=== PATIENT | male | born 1935 | race Caucasian/White ===

== ENCOUNTER → 2016-10-14 | Outpatient (CLI) | payer MEDICARE, OTHER ==
[~2016-10-14] MED LIST: AMBIEN10 MG PO; ASPIRIN E.C. 8181 MG PO; CYMBALTA30 MG PO; ENALAPRIL10 MG PO; FLOMAX 0.40.4 MG/CAP PO; ISOSORBIDE30 MG PO; MULTIPLE VITAMI1 CAP PO; NABUMETONE500 MG PO; NEURONTIN300 MG PO; NIACIN250 M2 PO; OYSCO 500500 M1 PO; TOPROL XL100 MG PO; TYLENOL 325MG325 MG PO; ZOCOR 20MG20 MG PO
== END ==
LOC: MHCPAIN 11:40
DX: G89.29 Other chronic pain (principal); M47.27 Other spondylosis with radiculopathy, lumbosacral region; M53.3 Sacrococcygeal disorders, not elsewhere classified
CPT/HCPCS: G0463

== ENCOUNTER → 2016-10-22 | Outpatient (CLI) | payer MEDICARE, OTHER | LOC: MHCPAIN 11:59 | DX: M53.3 Sacrococcygeal disorders, not elsewhere classified (principal) | CPT/HCPCS: G0260; J1040; Q9967 ==

== ENCOUNTER → 2016-11-03 | Outpatient (CLI) | payer MEDICARE, OTHER | LOC: MHCPAIN 11:52 | DX: G89.29 Other chronic pain (principal); M47.817 Spondylosis without myelopathy or radiculopathy, lumbosacral region; M54.16 Radiculopathy, lumbar region; M48.06 Spinal stenosis, lumbar region | CPT/HCPCS: G0463 ==

== ENCOUNTER → 2016-12-28 | Outpatient (CLI) | payer MEDICARE, OTHER | LOC: MHCPAIN 12:12 | DX: G89.29 Other chronic pain (principal); M47.817 Spondylosis without myelopathy or radiculopathy, lumbosacral region; M54.16 Radiculopathy, lumbar region; M53.3 Sacrococcygeal disorders, not elsewhere classified | CPT/HCPCS: G0463 ==

== ENCOUNTER 2023-11-10 21:36 | Inpatient (IN) | payer MEDICARE, OTHER ==
[2023-11-10] VITALS (9 sets, daily range): BP systolic 153; BP diastolic 93; PULSE 104; O2SAT 86–98
[~2023-11-10] VITALS: Wt 76.2 kg
[2023-11-10] MEDS ORDERED: OLANZapine 10 MG,Water For Injection,Sterile 2 ML IM ONE (23:00)
[2023-11-10] MEDS ORDERED: Ondansetron 4 MG/2 ML VIAL IV PRN (23:15)
--- NOTE | 2023-11-10 23:26 | NUR ---
Patient arrived to the floor at 2218 from [facility] via EMS per stretcher, very agitated and wanting to get up and wanted to void, with ba cather F16 inserted at [facility] draining bright red urine, noted red blood around the penile area, informed Mike, the PA regarding his arrival at 2227, called admission at 2231, received an order from Mike for Zyprexa IM given at 2306, patient was transferred to the unit at 2312 still agitated and combative escorted by 3 staff with 2 security personnel, report given to Amparo DOBSON at 2314.
[2023-11-10] MEDS ORDERED: LR 1,000 ML IV SCH (23:30)
[2023-11-10] MEDS ORDERED: cefTRIAXone 1 G in Water For Injection,Sterile 10 ML IV ONE (23:30)
[2023-11-10] MEDS ORDERED: Morphine 4 MG/ML VIAL IV PRN (23:30)
[2023-11-10] MEDS ORDERED: hydrALAZINE 20 MG/ML 1 ML VIAL IV PRN (23:30)
[2023-11-10] MEDS ORDERED: Acetaminophen 325 MG TAB PO PRN (23:30)
[2023-11-11] VITALS (242 sets, daily range): BP systolic 129–160; BP diastolic 75–113; PULSE 89–112; TEMP 97.9–98.5; O2SAT 74–100
[2023-11-11 00:38] LABS: BASO % 0.4 % (0.0-2.0); EOS # 0.1 K/mm3 (0.0-0.7); EOS % 0.6 % (0.0-4.0); GRAN # 6.8 K/mm3 (1.4-6.5); HEMATOCRIT 23.9 % (42.0-52.0); HEMOGLOBIN 7.8 g/dl (13.5-18.0); LYMPH # 0.3 K/mm3 (1.2-3.4); LYMPH % 3.7 % (20.0-51.0); MEAN CELL VOLUME 86 fl (80.0-100.0); MEAN CORPUSCULAR HEMOGLOBIN 28 pg (27-31); MEAN CORPUSCULAR HGB CONC 33 g/dl (33.0-37.0); MEAN PLATELET VOLUME 8.8 fl (7.4-10.4); MONO # 0.7 K/mm3 (0.1-0.6); MONO % 8.9 % (1.7-9.3); PLATELET COUNT 173 K/mm3 (130-400); RED BLOOD COUNT 2.79 M/mm3 (4.20-5.60); REDCELL DISTRIBUTION WIDTH-CV 14.3 % (11.5-14.5)
[2023-11-11 00:55] LABS: ALBUMIN 2.4 g/dL (3.4-4.8); BILIRUBIN,TOTAL 0.5 mg/dL (0.2-1.2); CALCIUM 8.8 mg/dL (8.4-10.2); CREATININE, serum 2.16 mg/dL (0.72-1.25); POTASSIUM 3.9 mEq/L (3.5-4.5); TOTAL PROTEIN 5.4 g/dl (6.2-8.1)
--- NOTE | 2023-11-11 01:21 | NUR ---
REPORT RECEIVED FROM JAMIE DOBSON AT 2315. PATIENT ARRIVED TO UNIT AROUND 2315 BY BED, BILATERAL WRIST RESTRAINTS ON DUE TO AGITATION, SECURITY GAURDS WITH PATIENT DURING TRANSPORT. ALL BELONGINGS TRANSFERRED WITH PATIENT.
[2023-11-11] MEDS ORDERED: OLANZapine 5 MG,Water For Injection,Sterile 1 ML IM PRN (02:30)
--- NOTE | 2023-11-11 03:10 | NUR ---
MISTAKE, PUT THIS INTERVENTION INSTEAD OF NONVIOLENT.
--- NOTE | 2023-11-11 03:11 | NUR ---
MISTAKE, MEANT TO ADD NONVIOLENT PROCESS INTERVENTION.
[2023-11-11] MEDS ORDERED: NS Irrig Soln 3000 ML SOLN IRP PRN (05:00)
[2023-11-11 05:21] LABS: CALCIUM 9.1 mg/dL (8.4-10.2); CREATININE, serum 2.02 mg/dL (0.72-1.25); POTASSIUM 3.9 mEq/L (3.5-4.5)
[2023-11-11] MEDS ORDERED: Isosorbide Mononitrate CR (24-HR) 30 MG TAB PO SCH (07:00)
--- NOTE | 2023-11-11 08:44 | NUR ---
PT IS AWAKE IN BED. NOT ORIENTED TO TIME, PLACE, OR SITUATION. FREQUENTLY YELLS OUT IN RANDOM. CBI INFUSING, URINE PINK IN COLOR WITH FEW CLOTS. 2 POINT SOFT WRIST RESTRAINTS ON, CIRCULATION AND FEELING IN TACT. BED ALARM IS ON. PT CONSTANTLY TAKES 02 FINGER PROBE OFF. CALL LIGHT IN REACH. NO NEW ORDERS. PLAN OF CARE ONGOING.
[2023-11-11] MEDS ORDERED: Sennosides/Docusate 8.6-50 MG TAB PO SCH (09:00)
[2023-11-11] MEDS ORDERED: Pantoprazole 40 MG in NS 10 ML IV SCH (09:00)
[2023-11-11] MEDS ORDERED: DULoxetine 30 MG CAP PO SCH (09:00)
--- NOTE | 2023-11-11 09:19 | NUR ---
lime kiln worker helper notes according to notes patient is agitated and confused. EVELYN contacted PCP listed, Dr. Zavala's office. PCP provided Charissa as a point of contact, P# [phone]. EVELYN was notified patient lives in the [place] prison. EVELYN contacted Brittney at the [facility] whom reports Charissa is the DPOA-HC and they are going to secure email the forms to the social psychologist. Brittney explained patient is in the jail care unit at their prison. Patient has a wheelchair and walker but the walker is for transfers as he is unable to walk. Patient receives assistance from staff with all ADLS. PCP is Dr. Jean and pharmacy is [facility] in [place]. Brittney reports they transport him to all appointments. EVELYN received Living will, DPOA-HC and General DPOA all listing Charissa Chappell as point of contact and agent for his care. EVELYN placed this on patient's chart. EVELYN contacted Charissa, P# [phone], to notify her patient is in the hospital. Charissa was unaware of his admission and would be up to visit patient later today. Charissa reports his insurance is Medicare A and B and [facility] Health Plan and patient's medications are typically covered by his insurance. Charissa asked for plan for patient. EVELYN explained patient is currently in the ICU due to being combative, once more stable he would move to our medical floor then when medically stable for discharge he would return to the [facility]. Charissa understands and explained she would be at the hospital later today to visit patient. EVELYN provided patient's nurse with Charissa's contact. EVELYN also contacted admissions and requested the information be added to patient's EMR to ensure all staff are able to contact her in an emergency. Discharge plan: Return to [facility]
[2023-11-11] MEDS ORDERED: SEROQUEL50 MG PO (09:39)
[2023-11-11] MEDS ORDERED: LASIX 40MG TABL40 MG PO (09:40)
[2023-11-11] MEDS ORDERED: LASIX 20MG TABL20 MG PO (09:40)
[2023-11-11] MEDS ORDERED: FENTANYL 25 MCG TD (09:40)
[2023-11-11] MEDS ORDERED: KLOR-CON SPRIN10 MEQ PO (09:41)
[2023-11-11] MEDS ORDERED: ROXICODONE 55 MG/TAB PO (09:41)
[2023-11-11] MEDS ORDERED: VALIUM 2MG T2 MG/TAB PO (09:41)
[2023-11-11] MEDS ORDERED: CYMBALTA 60MG60 MG PO (09:42)
[2023-11-11] MEDS ORDERED: CELEBREX 200MG200 MG PO (09:42)
[2023-11-11] MEDS ORDERED: PEPCID AC 10MG10 MG PO (09:42)
[2023-11-11] MEDS ORDERED: MELATONIN5 M1 SL (09:43)
[2023-11-11] MEDS ORDERED: FLOMAX 0.40.4 MG/CAP PO (09:43)
[2023-11-11] MEDS ORDERED: IMDUR 30MG30 MG/TAB PO (09:43)
[2023-11-11] MEDS ORDERED: RANEXA 500MG T500 MG PO (09:44)
[2023-11-11] MEDS ORDERED: PROTONIX20 MG PO (09:44)
[2023-11-11] MEDS ORDERED: ASPIRIN E.C. 8181 MG PO (09:45)
[2023-11-11] MEDS ORDERED: SEROQUEL 2525 MG/TAB PO (09:45)
[2023-11-11] MEDS ORDERED: TOPROL XL 50MG50 MG PO (09:46)
[2023-11-11] MEDS ORDERED: MIRALAX119G PO (09:46)
[2023-11-11] MEDS ORDERED: ZOCOR 20MG20 MG PO (09:46)
--- NOTE | 2023-11-11 10:32 | NUR ---
EDUCATED ERICK STRAUSS ON PT CONDITION. SHE EXPRESSED UNDERSTANDING. ALSO EDUCATED HER ON WHAT IT MEANS TO BE A FULL CODE STATUS VS. DNR. CARLOS A EXPRESSED HER WISHED FOR DNR STATUS.
--- NOTE | 2023-11-11 10:49 | NUR ---
Initial visit; Patient in restraints, having dementia. Ssn/Ssbn Weapons Equipment Operator talked with him letting him know who she was and would like to pray with him. Jay was happy for prayer. Ssn/Ssbn Weapons Equipment Operator had to explain again how he needed to rest. She prayed and covered him up so he can sleep well.
--- NOTE | 2023-11-11 13:03 | NUR ---
Patient's nurse asked about DNR documentation. SW contacted patient's longterm and they expressed they do not have a DNR form for this patient. SW notified patient's nurse.
--- NOTE | 2023-11-11 14:24 | NUR ---
PT TRANSFERED TO SURG RM 345 VIA BED ACCOMPANIED BY THIS NURSE AND SURG NURSE SHRUTI. CBI INFUSING. ALL BELONGINGS TRANSFERED WITH PT. INFORMED DPOA CARLOS A OF THIS TRANSFER. ALL VITALS STABLE. PT STILL CONFUSED CONVERSATION - WRIST RESTRAINTS STILL IN PLACE DUE TO PT PULLING AT CBI CATHETER. PLAN OF CARE HANDED OFF AT THIS TIME.
--- NOTE | 2023-11-11 14:45 | NUR ---
PT UP TO FLOOR AT THIS TIME. RESTRAINS IN PLACE PT TRANSFERED TO BED, PT STATING PAIN 10/10 BUT INTERMITTENTLY RESTING WITH EYES CLOSED. PT A/O TO SELF ONLY. AQUACELL APPLIED TO LEFT FOREARM SKIN TEAR. CBI RUNNING SLOWLY AND URINE LIGHT PINK WITH CLOTS. WILL CONTINUE TO MONITOR.
--- NOTE | 2023-11-11 15:00 | NUR ---
WRIST RESTRAINTS REMOVED AT THIS TIME. PT EDUCATED ON NEED OF CATHETER AND SAFETY MEASURES. BED ALARM IN PLACE. PT ASSISTED WITH EATING DINNER, TOLERATING DEIT WELL. PT CALM AND RESTING IN BED WITH OCCASIONAL CONFUSION AND NEED FOR REORIENTATION. OVERALL PT PLEASANT AND RESTING COMFORTABLY. WILL CONTINUE TO MONITOR.
--- NOTE | 2023-11-11 15:07 | NUR ---
computer networker secure emailed clinical updates to [facility].
[2023-11-11] MEDS ORDERED: Simvastatin 40 MG **** subs to Atorvastatin 20 MG PO SCH (21:00)
[2023-11-11] MEDS ORDERED: Atorvastatin 20 MG TAB PO SCH (21:00)
[2023-11-12] VITALS (11 sets, daily range): BP systolic 105–178; BP diastolic 61–90; PULSE 88–95; TEMP 97.7–99.1
[2023-11-12 06:42] LABS: BASO # 0.1 K/mm3 (0.0-0.2); BASO % 0.7 % (0.0-2.0); EOS # 0.4 K/mm3 (0.0-0.7); EOS % 5.2 % (0.0-4.0); GRAN % 67.7 % (42.2-75.2); LYMPH # 0.9 K/mm3 (1.2-3.4); LYMPH % 12.5 % (20.0-51.0); MEAN CELL VOLUME 87 fl (80.0-100.0); MEAN CORPUSCULAR HGB CONC 32 g/dl (33.0-37.0); MEAN PLATELET VOLUME 9.2 fl (7.4-10.4); MONO % 13.5 % (1.7-9.3); PLATELET COUNT 205 K/mm3 (130-400); RED BLOOD COUNT 2.78 M/mm3 (4.20-5.60); REDCELL DISTRIBUTION WIDTH-CV 14.5 % (11.5-14.5)
[2023-11-12 06:48] LABS: HEMOGLOBIN 7.8 g/dl (13.5-18.0); MEAN CORPUSCULAR HEMOGLOBIN 28 pg (27-31)
[2023-11-12 06:49] LABS: HEMATOCRIT 24.1 % (42.0-52.0)
[2023-11-12 07:01] LABS: CALCIUM 8.6 mg/dL (8.4-10.2); CREATININE, serum 1.39 mg/dL (0.72-1.25); POTASSIUM 3.1 mEq/L (3.5-4.5)
--- NOTE | 2023-11-12 08:47 | NUR ---
PT RESTING IN BED WITH NO SIGNS OF PAIN, TOELRATING DEIT, WELL, A/O TO SELF ONLY. CBI RUNNING VERY SLOWLY AND URINE YELLOW AND CLEAR. MEPOLEX IN PLACE ON LEFT FOREARM SKIN TEAR CLEAN AND DRY. ESTEVES TO DEPENDENT DRAINAGE. PT PLEASANT AND COOPERATIVE AT THIS TIME. WILL CONTINUE TO MONITOR.
[2023-11-12] MEDS ORDERED: *Potassium Replacement Protocol MC SCH (09:30)
[2023-11-12] MEDS ORDERED: Potassium Bicarbonate/Citrate 20 MEQ Effervescent TAB PO SCH (09:30)
[2023-11-12] MEDS ORDERED: fentaNYL 25 MCG 72 HR PATCH TD SCH (09:45)
[2023-11-12] MEDS ORDERED: fentaNYL Patch Removal/Drugbuster TD SCH (10:00)
[2023-11-12 10:30] LABS: URINE APPEARANCE CLOUDY (CLEAR/HAZY); URINE BLOOD 3+ (NEGATIVE); URINE COLOR YELLOW (YELLOW); URINE GLUCOSE NEGATIVE (NEGATIVE); URINE KETONE NEGATIVE (NEGATIVE); URINE NITRATE NEGATIVE (NEGATIVE); URINE PROTEIN(semi-quant) 3+ (NEGATIVE)
[2023-11-12 10:43] LABS: URINE BACTERIA MODERATE /hpf (NONE SEEN); URINE WBC 20-50 /hpf (0-2)
[2023-11-12 10:53] LABS: COLLECTION METHOD CLEAN CATCH
[2023-11-12] MEDS ORDERED: oxyCODONE 5 MG TAB PO PRN (13:30)
--- NOTE | 2023-11-12 15:24 | NUR ---
VERBAL ORDERS FROM DR NICHOLAS TO CAP CBI AND CONTINUE TO MONITOR URINE. PT RESTING COMFORTABLY IN BED AT THIS TIME.
[2023-11-12] MEDS ORDERED: cefTRIAXone 1 G in Water For Injection,Sterile 10 ML IV SCH (15:30)
--- NOTE | 2023-11-12 15:56 | NUR ---
Java Software Architect spoke with Emi at [facility] who advised they would not be able to accept patient over the weekend if he is ready for discharge.
--- NOTE | 2023-11-12 17:35 | NUR ---
VERBAL ORDERS FROM DR. NICHOLAS TO REMOVED ESTEVES AT 0500 ON 11/12.
[2023-11-12] MEDS ORDERED: Ranolazine ER 500 MG TAB PO SCH (21:00)
[2023-11-12] MEDS ORDERED: QUEtiapine 25 MG TAB PO SCH (21:00)
[2023-11-13] VITALS (13 sets, daily range): BP systolic 109–153; BP diastolic 68–82; PULSE 79–98; TEMP 97.6–99.2
--- NOTE | 2023-11-13 06:40 | NUR ---
PT RESTING IN BED. PT IS ON RA. PT IS NON TELE. ESTEVES CATH DC'D AT 0500. DTV, PT HAS HX OF INCONTINENCE. PT IS A HIGH FALL RISK. BEDALARM ACTIVE. PT HAS CALL LIGHT AND INSTRUCTED TO CALL WITH ALL NEEDS. 0750- SPOKE WITH TISHA IN PHARMACY REGARDING DUPLICATE CYMBALTA ORDERS AND CHANGING PROTONIX TO PO FROM IV.
[2023-11-13 07:17] LABS: CALCIUM 8.3 mg/dL (8.4-10.2); CREATININE, serum 1.31 mg/dL (0.72-1.25); POTASSIUM 3.8 mEq/L (3.5-4.5)
[2023-11-13] MEDS ORDERED: DULoxetine 60 MG CAP PO SCH (09:00)
--- NOTE | 2023-11-13 09:28 | NUR ---
PT SLEEPING, ATTEMPTED TO WAKE FOR MEDS AND BREAKFAST. PT WAKES AND PULLING OFF OXYGEN. REORIENTED PT AND EDUCATED ON THE NEED TO WEAR HIS OXYGEN. PT STATING "IM GONNA GO BACK TO SLEEP, I NEED REST". OXYGEN REPLACED AND PT GOING BACK TO SLEEP. BEDLARM ACTIVE AND CALL LIGHT WITHIN REACH.
--- NOTE | 2023-11-13 11:04 | NUR ---
1015-PT AWAKENED. PT AGREEABLE TO TAKE MEDS. PT REPOSITTIONED AND MEDS GIVEN, BREAKFAST GIVEN. 1045-PT FINISHED 80% OF BREAKFAST. PT STILL HASNT VOIDED SINCE ESTEVES REMOVAL. PT BLADDER SCANNED WITH A RESULT OF 245ML.
--- NOTE | 2023-11-13 14:49 | NUR ---
PT STILL UNABLE TO VOID. BLADDER SCANNED WITH A RESULT OF 700. NOTIFIED .
--- NOTE | 2023-11-13 15:00 | NUR ---
SPOKE WITH , STATES ONLY IF PT BECOMES UNCOMFORTABLE AND/OR RESTLESS TO PLACE ESTEVES CATHETER.
--- NOTE | 2023-11-13 16:06 | NUR ---
PT COMPLAINING OF LOWER ABD PAIN AND FULLNESS. ATTEMPTED TO VOID MULTIPLE TIMES. PT STATES "THE PAIN IS TOO BAD". OXY GIVEN AND ESTEVES REPLACED. ESTEVES DRAINGED 800ML IMMEDIATELY. PT STATES HE FEELS BETTER. ESTEVES CLAMPED. 1620- ESTEVES CATH UNCLAMPED. ESTEVES DRAINING YELLOW URINE, WITH SMALL BLOOD CLOTS. PT STATES HE FEELS BETTER
--- NOTE | 2023-11-13 17:47 | NUR ---
PATIENT ALERT TO SELF AND APPEARS TO BE CONFUSED. PATIENT DENIES ANY PAIN AT THIS TIME. ASSESSMENT PERFORMED. ESTEVES TO DD WITH LIGHT PINK OUTPUT WITH SCATTERED SMALL CLOTS. PATIENT ON RA. RESTING IN BED. CALL LIGHT IN REACH. BED ALARM ON.
[2023-11-14] VITALS (13 sets, daily range): BP systolic 120–156; BP diastolic 70–97; PULSE 75–99; TEMP 97.5–98.3
--- NOTE | 2023-11-14 03:07 | NUR ---
PT ALERT AND ORIENTED TO SELF, AT TIMES CONFUSED AND FORGETFUL. AT THE START OF THE SHIFT HE BECAME INCREASINGLY AGGITATED. 5G OF ZYPREXA GIVEN. ASSESSED AND MEDICATED PER EMAR. ATTEMPTED TO GET OUT OF BED A FEW TIMES, WE WERE ABLE TO INTERVIEN TO KEEP PT SAFE. SUFFERS FROM INSOMNIA. CALL LIGHT WITHIN REACH, BED ALARM ENGAGED.
--- NOTE | 2023-11-14 09:51 | NUR ---
PATIENT ALERT AND ORIENTED X2. PATIENT INTERMITTENTLY CONFUSED. IV TO LEFT AC, INT AND FLUSHES WELL. FENTANYL PATCH ON LEFT UPPER CHEST, PLACED ON 11/11. ESTEVES TO DD WITH SUE OUTPUT. HEEL PROTECTORS ON. BLE EDEMATOUS 2+. PATIENT DROWSY BUT AROUSABLE. BED ALARM ON. CALL LIGHT IN REACH.
--- NOTE | 2023-11-14 12:31 | NUR ---
Updated clinicals sent to [facility] via secure email.
--- NOTE | 2023-11-14 19:53 | NUR ---
PATIENT CALLED OUT FOR ADDITIONAL PAIN MED FOR PAIN LEVEL OF 9/10 TO GENERALIZED PAIN TO JOINTS AND ABD/PENIS PAIN. SEE MAR FOR MED GIVEN.
--- NOTE | 2023-11-14 22:55 | NUR ---
NURSING SHIFT ASSESSMENT COMPLETED. THE PATIENT IS ALERT AND PLEASENTLY CONFUSED. THE PATIENT USES HIS CALL LIGHT APPROPRIATELY. THE BED ALARM IS ON SINCE THE PATIENT IS SOMEWHAT CONFUSED AND FORGETFUL. THE PATIENT IS ORIENTED TO SELF AND FREQUENTLY ASKS FOR PAIN MEDICATION. WHEN ASKED WHAT NUMBER HE WOULD GIVE HIS LEG PAIN HE STATED 8/10. THE NEXT TIME THE PATIENT WAS ASKED HE REPORTED HIS PAIN 19/10. A SECOND PAIN PILL WAS PROVIDED PER THE ORDER. THE PATIENT WAS PROVIDED FRESH ICE WATER AND DENIED OTHER NEEDS. ESTEVES CARE WAS DONE BY THE ED MO. NO OTHER NEEDS AT THIS TIME. CALL LIGHT WITHIN REACH, BED IN LOW POSITION, AND THE BED ALARM IS ON.
[2023-11-15] VITALS (7 sets, daily range): BP systolic 118–120; BP diastolic 69–70; PULSE 74–85; TEMP 98.1–98.9
--- NOTE | 2023-11-15 08:00 | NUR ---
PATIENT IS ORIENTED X2, BUT VERY FORGETFUL/CONFUSED. PATIENT IS ALSO HOULTON. VSS. PATIENT C/O CHRONIC PAIN ISSUES AND REQUESTING SOMETHING FOR PAIN. APPLIED SCHEDULED FENTANYL PATCH AND GAVE PRN OXYCODONE FOR PAIN RATED AT 9/10. ACCOUNTS SPECIALIST REPORTS PATIENT GET RESTLESS AND DID BETTER IN THE CHAIR. PATIENT 2 ASSIST TO BEDSIDE CHAIR FOR BREAKFAST. PATIENT IS WEAK AND REQUIRED A LOT OF QUES. PT CONSULTED. PATIENT IS FROM [facility]. PLAN IS TO TRANSFER BACK TO [place] WITH ESTEVES INPLACE. UROLGY ROUNDED THIS AM AND WILL PLAN TO FOLLOW UP OUTPATIENT. ESTEVES TO DD WITH CLEAR YELLOW URINE NOTED. LEFT FORARM IV TO INT. HEAD TO TOE ASSESSMENT COMPLETE. BREAKFAST TRAY AT BEDSIDE. AM MEDS GIVEN. CHAIR ALARM ON. CALL LIGHT IN REACH. DOOR OPEN.
[2023-11-15] MEDS ORDERED: ASPIRIN E.C. 8181 MG PO (08:48)
--- NOTE | 2023-11-15 09:57 | NUR ---
SW informed patient is ready for discharge to return to [facility]. Spoke with Brittney at [facility] to alert of return. Transportation set for [phone]. Discharge orders and clinicals faxed. Number provided for their nurse to call for report. Nurse notified of transport time. Discharge plan: return to [facility] for skilled care
--- NOTE | 2023-11-15 13:30 | NUR ---
RACHEL HERE TO PICK PATIENT UP. GAVE INFO PACKET TO SUPERVISOR [employer]. REPORT ALREADY CALLED TO NURSE AT [facility] IN THE MORNING. IV DC'D AND SITE COVERED WITH [employer]. PATIENT IS DRESSED, PACKET, AND SENT WITH PERSONAL BELONGINGS. PATIENT DISCHARGED.
== END 2023-11-15 13:30 | DRG 726 ==
LOC: SURG 21:36 → ICU 22:41 → SURG 22:41 → ICU 23:12 → SURG 11-11 14:45
PROVIDERS: Internal Medicine; Physician Assistant; ADMIT Internal Medicine
DX: N40.1 Benign prostatic hyperplasia with lower urinary tract symptoms (principal); N13.8 Other obstructive and reflux uropathy; I25.110 Atherosclerotic heart disease of native coronary artery with unstable angina pectoris; N17.9 Acute kidney failure, unspecified; F41.9 Anxiety disorder, unspecified; F32.A Depression, unspecified; I10 Essential (primary) hypertension; Z66 Do not resuscitate; E78.5 Hyperlipidemia, unspecified; I73.9 Peripheral vascular disease, unspecified; R41.0 Disorientation, unspecified; R31.0 Gross hematuria; D64.9 Anemia, unspecified; K21.9 Gastro-esophageal reflux disease without esophagitis; R33.8 Other retention of urine; G89.29 Other chronic pain; Z85.46 Personal history of malignant neoplasm of prostate; Z79.82 Long term (current) use of aspirin; Z79.899 Other long term (current) drug therapy; Z90.49 Acquired absence of other specified parts of digestive tract; Z95.1 Presence of aortocoronary bypass graft; Z87.891 Personal history of nicotine dependence; Z88.5 Allergy status to narcotic agent
CPT/HCPCS: C9113; J0360; J0696; J2270; J2359; J7120